=== PATIENT | female | born 2000 | race Two or more races ===

== ENCOUNTER 2024-09-01 09:37 | Observation (INO) | payer MEDICAID, SELFPAY ==
[2024-09-01] VITALS (30 sets, daily range): BP systolic 112–125; BP diastolic 59–80; PULSE 108–136; RESP 16–99; TEMP 37.1; O2SAT 96–99; BMI 35.4
--- NOTE | 2024-09-01 10:09 | XR_ITS ---
Examination: Complete OB ultrasound greater than 14 weeks Date and time of exam: September 01, 2024 1057 hours INDICATIONS: Vaginal bleeding and pelvic cramping onset today Findings: Viable intrauterine single fetus with single amniotic sac presentation cephalic spine maternal right Cardiac motion 136 BPM Placenta posterior grade 2 Umbilical cord insertion 3 vessel seen Amniotic fluid index 7.9 cm Cervix 3.4 cm Ovaries obscured by bowel gas. Composite estimated gestational age based on BPD, head circumference, abdominal circumference, femur length is 35 weeks 0 days Estimated weight 2589.5 g. Survey of intracranial anatomy, spinal anatomy, abdominal anatomy, four-chamber heart performed with no abnormalities identified. Impression: Viable intrauterine gestation cephalic presentation Placenta posterior grade 2 no abruption Estimated gestational age 35 weeks 0 days.
[2024-09-01] MEDS: SODIUM CHLORIDE 0.9% 1000 ML 1,000 ML 999 ML IV (10:40)
[2024-09-01 11:45] LABS: Collection Type, Urine Clean Catch
[2024-09-01 12:06] LABS: Bilirubin,Urine Negative (Negative); Blood,Urine Negative (Negative); Clarity,Urine Clear (Clear/Hazy); Color,Urine Yellow (Lt Yel-Yel); Glucose, Urine Negative (Negative); Ketones,Urine 4+ (Negative); Leukocyte Esterase,Urine Negative (Negative); Nitrite,Urine Negative (Negative); PH,Urine 6.5 (5.0-7.0); Protein,Urine Trace (Neg - Trace); RBC,Urine 1 /hpf (0-3); Specific Gravity,Urine 1.019 (1.001-1.035); Squamous Epithelial Cell,Urine 3 /hpf (0-5); Urobilinogen,Urine Negative mg/dL (0.0-1.0); WBC,Urine 2 /hpf (0-5)
== END 2024-09-01 12:40 | disposition home or self-care (01) ==
PROVIDERS: Admitting Provider Advanced Practice Midwife; Visit Provider Advanced Practice Midwife
DX: O46.93 Antepartum hemorrhage, unspecified, third trimester (principal); Z3A.35 35 weeks gestation of pregnancy
CPT/HCPCS: 59025; 59899; 76805; 81001; J7030

== ENCOUNTER 2024-10-09 12:49 | Inpatient (IN) | payer MEDICAID, SELFPAY ==
[2024-10-09] VITALS (142 sets, daily range): BP systolic 96–134; BP diastolic 52–80; PULSE 94–148; RESP 18–96; TEMP 36.7–37.2; O2SAT 89–100; BMI 35.6
--- NOTE | 2024-10-09 14:36 | ESHP_ITS ---
Documentation for date of: 10/09/24 OB Labor/Induct. HPI History of Present Illness Chief complaint: ctx : 1 Para: 0 History of Vaginal deliveries: 0 History of sections: No Date of last menstrual period: 01/06/24 DENITA: 10/12/24 Gestational Age (weeks): 39 Gestational Age (days): 4 Gestational age based on last menstrual period: 39 History of present illness: Patient presents with regular/painful ctx. No LOF, no vaginal bleeding. Feels normal movement. History of Present Dating criteria: LMP confirmed by 1st trimester US Adequate Care: Yes Obstetrical complications: other (elevated 1hr glucola with normal 3hr GTT, starting BMI 35 ) Labs Labs: Positive: Rubella Titre and Negative: RPR, Hepatitis B, HIV, Chlamydia and Gonorrhea Review of Systems Review of Systems Narrative Review of Systems: Review of Systems Systems Reviewed: All systems reviewed, normal except as documented Constitutional Constitutional: Denies body ache(s), Denies chills, Denies fever(s) and Denies headache(s) ENT Ears, Nose, Mouth, and Throat: Denies headache(s) and Denies vertigo Cardiovascular Cardiovascular: Denies chest pain, Denies palpitations, Denies dyspnea and Denies syncope Respiratory Respiratory: Denies cough, Denies dyspnea Gastrointestinal Gastrointestinal: Denies nausea and Denies vomiting Neurologic Neurologic: Denies convulsions, Denies headache(s), Denies other visual disturbances, Denies syncope and Denies vertigo Past Medical History Surgical History SURGICAL: Negative Section OTHER SURGICAL HX: tonsillectomy Social History SOCIAL: Denies tobacco/ETOH/illicit drug use Past Medical History Comments PMH COMMENT: Starting BMI 35 Anxiety Hx of chlamydia in remote past (negative in ) Hx of HPV positive pap Meds Home Medications and Allergies Home Medications ?Medication ?Instructions ?Recorded ?Confirmed ?Type vits no.124-ferrous fum 1 tab PO QDAY 4 10/09/24 History 27 mg iron-folic acid 800 mcg tablet ( Vitamin) Allergies Allergy/AdvReac Type Severity Reaction Status Date / Time No Known Allergies Allergy Verified 10/09/24 13:08 OB Exam Physical Exam Vital signs: Temp Pulse Resp BP Pulse Ox 98.0 F 133 H 18 123/72 98 10/09/24 12:50 10/09/24 12:58 10/09/24 12:50 10/09/24 12:58 10/09/24 14:29 Narrative: General: well developed, well nourished, no acute distress, conversant Cardiac: normal heart rate Lungs: breathing without distress Abdomen: soft, gravid, non-tender, no rebound or guarding Extremities: no pain with palpation of calves Detailed Labor and Delivery Exam Dilation (cm): 3 Effacement (%): 80 Cervix position: mid station: -2 Consistency: soft Presentation: Vertex Membranes: intact monitor accelerations: 15x15 monitor decelerations: None intermediate frame tender variability: Moderate (11-25) Contraction frequency (min): q3min OB Assessment & Plan Assessment and Plan (1) Active labor at term: Status: Acute Assessment and plan: Patient is a 24yo with SIUP at 39+4wk presenting in active labor. Regular/painful contractions, SCE: 3/80/-2, bulging bag. Vitals wnl, benign exam. Reassuring assessment. PMhx/ complicated by: Elevated 1hr glucola, normal 3hr GTT Starting BMI 35 Anxiety Hx of chlamydia in remote past (negative in ) Hx of HPV positive pap Plan: -Admit to L&D -Establish IV, routine labs -CEFM -Clear liquid diet -Application Software Developer/consent re: . She is amenable to pitocin or AROM if early labor stalls out. -GBS status: negative -Anticipate -Safe to proceed (2) Obesity affecting in third trimester: Status: Acute (2) Obesity affecting in third trimester Qualifiers: Obesity type affecting : unspecified obesity Qualified Code(s): O99.213 - Obesity complicating , third trimester
[2024-10-09 16:41] LABS: Basophils # (Auto) 0.1 Thou/mm3 (0.0-0.2); Basophils % (Auto) 0 % (0-2.5); Eosinophils # (Auto) 0.1 Thou/mm3 (0.0-0.5); Eosinophils % (Auto) 1 % (0-10); Hematocrit 38.6 % (36.0-46.0); Hemoglobin 13.3 g/dL (12.0-16.0); Immature Granulocytes % (Auto) 1 % (0-0); Immature Granulocytes Auto 0.11 Thou/mm3 (0.00-0.00); Lymphocytes # (Auto) 1.8 Thou/mm3 (1.0-4.8); Lymphocytes % (Auto) 12 % (10-50); Mean Corpuscular HGB Conc 34.5 g/dl (31.0-37.0); Mean Corpuscular Hemoglobin 29.3 pg (25.0-35.0); Mean Corpuscular Volume 85 fL (80-100); Monocytes # (Auto) 1.2 Thou/mm3 (0.0-0.8); Monocytes % (Auto) 8 % (0-12); Neutrophils # (Auto) 11.4 Thou/mm3 (1.8-7.7); Neutrophils % (Auto) 78 % (37-80); Nucleated Red Blood Cell % 0 /100 WBC (0); Platelet Count 221 Thou/mm3 (140-440); RDW Standard Deviation 46.3 fL (36.4-46.3); Red Blood Count 4.54 Miln/mm3 (4.00-5.20); White Blood Count 14.7 Thou/mm3 (3.6-11.0)
[2024-10-09 18:02] LABS: Syphilis Nonreactive (Nonreactive)
[2024-10-09] MEDS: RINGERS LACTATED 1000 ML 1,000 ML 100 ML IV ×2 (19:29→20:01)
[2024-10-09] MEDS: OXYTOCIN in NS 30 units 30 UNIT/500 ML BAG IV (21:32)
[2024-10-10] VITALS (351 sets, daily range): BP systolic 85–177; BP diastolic 48–111; PULSE 104–143; RESP 16–20; TEMP 36.7–37.3; O2SAT 87–100
[2024-10-10] MEDS: RINGERS LACTATED 1000 ML 1,000 ML 100 ML IV ×2 (09:23→13:19)
[2024-10-10] MEDS: Ampicillin Inj 2,000 MG in SODIUM CHLORIDE 0.9% (P) 100 ML 100 MG IV (13:17)
--- NOTE | 2024-10-10 13:29 | PD.LDPN ---
Documented by User: Katina Boss CNM 10/10/24 14:34 Documentation for date of: 10/10/24 OB Labor Progress Note Pain Control Pain control: epidural Pelvic Exam Dilation (cm): 7 Effacement (%): 90 station: -1 Amniotic membrane status: Ruptured Contractions Monitor mode: External Contraction frequency: 3-4 Contraction phase: Contraction Contraction intensity: Moderate Status status: Category l Assessment and Plan Assessment: active labor Plan OB labor note: continuous present management Comments: apparently pt was not 7cm this morning, RN reports she was like 5 and now she has made cervical change to 7 cm Start ampicillin for prolonged ruptured membranes Dr. Dubon updated Anticipate Documented by User: Pita Dubon MD 10/10/24 20:13 OB Labor Progress Note Pelvic Exam Dilation (cm): 6 Assessment and Plan Comments: apparently pt was not 7cm this morning, RN reports she was like 5 and now she has made cervical change to 6 cm Start ampicillin for prolonged ruptured membranes Dr. Dubon updated Anticipate
--- NOTE | 2024-10-10 16:22 | PD.LDPN ---
Documentation for date of: 10/10/24 OB Labor Progress Note Pelvic Exam Dilation (cm): 6 Effacement (%): 90 station: -1 Amniotic membrane status: Ruptured Contractions Monitor mode: External Contraction frequency: 1-2 Contraction phase: Contraction Contraction intensity: Moderate Status status: Category l Assessment and Plan Pitocin rate (mU/min): 10 Assessment: active labor Plan OB labor note: continuous present management Comments: Pt really has not made any Cervical change since 0700 Pt is very uncomfortable, called anesthesia for a bolus Placed an IUPC Discussed with pt if pt does not make cervical change in the next 2 hours, she might end up in C/S. Updated Dr. Dubon
[2024-10-10] MEDS: Ampicillin Inj 1,000 MG in SODIUM CHLORIDE 0.9% (P) 50 ML 50 MG IV (16:53)
[2024-10-10] MEDS: FAMOTIDINE INJ 10 MG/ML VIAL 2 ML 20 MG IV (19:39)
[2024-10-10] MEDS: ceFAZolin/D5W 2 GM IV 2 GM/100 ML BAG IV (19:40)
[2024-10-10] MEDS: CITRIC ACID/SODIUM CITR 15 ML UDC (BICITRA) 30 ML PO (19:40)
--- NOTE | 2024-10-10 20:12 | PD.LDPN ---
Documentation for date of: 10/10/24 OB Labor Progress Note Pain Control Comments: Patient is a 24-year-old 1 para 0 at 39 and 5 days was admitted yesterday by another provider for augmentation of labor. Patient was 3 cm when she got admitted. And SROM after admission. Patient on change of shift was reported to me as 7 cm per RN check. Given a primigravida in uncomplicated labor patient care was transferred over to tourist information officer. I received a call at 11 AM from the tourist information officer saying the patient is not 7 cm per her check however she appears to be 6 cm. Apparently the nurse who checked her in the morning who called her 7 had a recheck after her by another nurse calling her a 5 cm however it was not revealed to the patient. Patient has been on Pitocin and ruptured for 14 hours now. CNM I shall check her at 4:30 PM and her cervix still was 6 cm. I checked her myself at 6:30 PM and called her 5 to 6 cm Pelvic Exam Dilation (cm): 6 Effacement (%): 90 station: -1 Amniotic membrane status: Ruptured Contractions Monitor mode: External Contraction frequency: 1-2 Contraction phase: Contraction Contraction intensity: Moderate Status status: Category l Assessment and Plan Comments: Given the patient being in active labor for 6 hours with Pitocin and ruptured and not changing her cervical status failure to progress is diagnosed. Patient is offered a primary low-transverse and an option of expectant and continuing labor was also discussed with her Risk of including prolonged recovery was discussed Risk of expectant management and continuing labor was discussed including chorioamnionitis Patient is on antibiotics for prolonged rupture of membrane Patient decided to go for a Boarded for primary low-transverse and 1 hour
--- NOTE | 2024-10-10 21:45 | PD.LDDELS ---
Data (Rodriges) Data Hx Section: No : 1 Term: 0 : 0 : 0
--- NOTE | 2024-10-10 22:44 | OBDSUM_ITS ---
Data (Rodriges) Data Hx Section: No : 1 Para: 0 Term: 0 : 0 : 0 Delivery Data (Rodriges) Labor Data ROM Date: 10/09/24 ROM Time: 18:40 Rupture Type: AROM Amniotic Fluid: Thick Meconium Delivery Data Labor Onset Stage 1 Date: 10/09/24 Labor Onset Stage 1 Time: 20:35 Labor Onset Stage 2 Date: 10/10/24 Labor Onset Stage 2 Time: 16:30 Delivery Date: 10/10/24 Delivery Time: 20:35 Gestational age (weeks): 39 Gestational age (days): 5 Placenta Delivery Date: 10/10/24 Placenta Delivery Time: 20:37 Delivered by: Pita Dubon Delivery nurse: Kalyn Davis Other staff at delivery: Nurse Other staff at delivery: Aubree Flores Delivery Method Delivery: Delivery Type: Primary Anesthesia Type Primary Anesthesia: Epidural Secondary Anesthesia: Spinal Placenta Placenta Delivery: Manual EBL Estimated blood loss (ml): 400 Umbilical Cord Umbilical Vessels: 3 Nuchal Cord: None Body Cord: None Data (Rodriges) [place] Data Infant Gender: Female Infant Weight Grams: 3855 1 Minute Total: 6 5 Minute Total: 6
--- NOTE | 2024-10-10 22:45 | ESOP_ITS ---
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 Identity was confirmed by double identifiers and she was placed on the operating table.The abdomen and perineum were prepped in the usual sterile fashion and a Mendenhall catheter was placed to continuous drainage.? Sterile drapes were a pplied.??A Pfannenstiel skin incision was made with a scalpel and carried to the subcutaneous fat up to the rectus fascia.? The rectus fascia was incised on either side of the midline and the incisions were extended bilaterally.? The fascia was gently dissected off the ventral surface of the rectus muscle both superiorly and inferiorly. Carefully a peritioneal window craeted hysterotomy incision made and extended bluntly with finger. Rupture of membranes revealed clear fluid. The baby was found in cephalic position delivered via vertex. The umbilical cord , was doubly clamped, divided and the was handed over to the waiting team.? placenta delivered by controlled cord traction . The interior of the uterus was now thorougly cleaned of all blood and debris and membranes.? 2 cavities and the uterus verified the? hysterotomy was closed using 0 vicryl suture in double layers. Once the repair was completed the hysterotomy was inspected, was noted to be adequately hemostatic . Muscle oozing stopped by bovie. The rectus fascia was repaired using Vicry 0 in a running fashion.? The subcutaneous layer was now, approximated with 3-0 vicryl in double layers.? All bleeding points were cauterized using the Bovie.?The skin was closed using 4-0 Monocryl in a subcuticular fashion.? The skin was cleaned and a sterile dressing was applied. The patient was now undraped, the abdomen and back were thoroughly cleaned and she was now transferred to the recovery room in a stabl Estimated blood loss (ml): 400 Surgical staff Operation Date: 10/10/24 20:09 Case Staff TRAVEL ADMINISTRATOR: Jean-Paul Presley RNmanager web application: Halle Beckman Diagnosis Problem List Completed Was Problem List Reviewed/Reconciled?: Yes
[2024-10-11] MEDS: KETOROLAC INJ 30 MG/ML VIAL IVP (03:25)
[2024-10-11 03:40] VITALS: BP 117/73; PULSE 109; RESP 18; TEMP 36.8; O2SAT 98
[2024-10-11 04:08] LABS: Basophils # (Auto) 0.1 Thou/mm3 (0.0-0.2); Basophils % (Auto) 1 % (0-2.5); Eosinophils % (Auto) 0 % (0-10); Hematocrit 34.3 % (36.0-46.0); Hemoglobin 11.9 g/dL (12.0-16.0); Immature Granulocytes % (Auto) 1 % (0-0); Immature Granulocytes Auto 0.14 Thou/mm3 (0.00-0.00); Lymphocytes # (Auto) 1.9 Thou/mm3 (1.0-4.8); Lymphocytes % (Auto) 10 % (10-50); Mean Corpuscular HGB Conc 34.7 g/dl (31.0-37.0); Mean Corpuscular Hemoglobin 29.8 pg (25.0-35.0); Mean Corpuscular Volume 86 fL (80-100); Monocytes # (Auto) 1.4 Thou/mm3 (0.0-0.8); Monocytes % (Auto) 7 % (0-12); Neutrophils # (Auto) 15.3 Thou/mm3 (1.8-7.7); Neutrophils % (Auto) 81 % (37-80); Nucleated Red Blood Cell % 0 /100 WBC (0); Platelet Count 190 Thou/mm3 (140-440); RDW Standard Deviation 46.2 fL (36.4-46.3); White Blood Count 18.8 Thou/mm3 (3.6-11.0)
[2024-10-11 08:00] VITALS: BP 99/61; PULSE 100; RESP 15; TEMP 36.7; O2SAT 97
[2024-10-11] MEDS: IBUPROFEN TAB 400 MG TABLET 800 MG PO ×2 (08:08→20:43)
--- NOTE | 2024-10-11 11:10 | PD.LDPPPRG ---
Subjective Subjective Interval history: Patient seen at the bedside, doing well. Patient denies any fever, vaginal bleeding, nausea vomiting. Has been ambulating in the room denies any dizziness. Has not passed gas Exam Vital Signs Temp Pulse Resp BP Pulse Ox O2 Del Method 98.0 F 100 15 99/61 97 Room Air 10/11/24 08:00 10/11/24 08:00 10/11/24 08:00 10/11/24 08:00 10/11/24 08:00 10/11/24 08:00 Constitutional Constitutional: no acute distress Routine HEENT Exam Head: Present normocephalic and atraumatic Eye: Present EOMI and PERRL ENT: Present mucous membranes moist Routine Neck Exam Neck: Present supple and trachea midline Routine Respiratory Exam Respiratory: Present chest non-tender, lungs clear, normal breath sounds and no resp distress Routine Cardiovascular Exam Cardiovascular: Present RRR Routine Abdominal Exam Abdominal: Present soft and normoactive bowel sounds Routine Extremities Exam Extremities: Present full ROM Routine Skin Exam Skin: Present intact, dry and warm Routine Neurological Exam Neurological: Present alert, oriented X3 and CN II-XII intact Routine Psychiatric Exam Psychiatric: Present normal affect and normal thought process Objective Labs 10/11/24 03:42 Labs: Laboratory Results - last 24 hr 10/11/24 03:42 WBC 18.8 H RBC 4.00 Hgb 11.9 L Hct 34.3 L MCV 86 MCH 29.8 MCHC 34.7 RDW Std Deviation 46.2 Plt Count 190 D Neut % (Auto) 81 H Lymph % (Auto) 10 [place] % (Auto) 7 Eos % (Auto) 0 Baso % (Auto) 1 Neut # (Auto) 15.3 H Lymph # (Auto) 1.9 [place] # (Auto) 1.4 H Eos # (Auto) 0.0 Baso # (Auto) 0.1 Immature Gran # (Auto) 0.14 H Absolute Nucleated RBC 0.00 Immature Gran % 1 H Nucleated RBC % 0 Assessment & Plan Problem List (1) Active labor at term: Status: Acute (2) Obesity affecting in third trimester: Status: Acute Assessment Comment Assessment comment: 24-year-old s/p primary low-transverse for failure to progress, postop day 1 Tachycardic, hemoglobin postop 11 No vaginal bleeding Meeting postop milestones otherwise Plan Comment Plan Comment: Will repeat the hemoglobin again with lactic acid continue inpatient care Anticipate discharge tomorrow Time Spent With Patient Time: Total time spent is greater than 50% in coordination of care (as documented) at patient's floor/unit and/or counseling patient:
[2024-10-11 11:45] VITALS: BP 109/74; PULSE 104; RESP 17; TEMP 36.6; O2SAT 96
[2024-10-11 12:39] LABS: Basophils # (Auto) 0.1 Thou/mm3 (0.0-0.2); Basophils % (Auto) 0 % (0-2.5); Eosinophils # (Auto) 0.1 Thou/mm3 (0.0-0.5); Eosinophils % (Auto) 0 % (0-10); Hematocrit 37.2 % (36.0-46.0); Hemoglobin 12.6 g/dL (12.0-16.0); Immature Granulocytes % (Auto) 1 % (0-0); Immature Granulocytes Auto 0.15 Thou/mm3 (0.00-0.00); Lymphocytes # (Auto) 1.6 Thou/mm3 (1.0-4.8); Lymphocytes % (Auto) 8 % (10-50); Mean Corpuscular HGB Conc 33.9 g/dl (31.0-37.0); Mean Corpuscular Hemoglobin 29.4 pg (25.0-35.0); Mean Corpuscular Volume 87 fL (80-100); Monocytes # (Auto) 0.7 Thou/mm3 (0.0-0.8); Monocytes % (Auto) 3 % (0-12); Neutrophils # (Auto) 17.2 Thou/mm3 (1.8-7.7); Neutrophils % (Auto) 87 % (37-80); Nucleated Red Blood Cell % 0 /100 WBC (0); Platelet Count 189 Thou/mm3 (140-440); RDW Standard Deviation 47.1 fL (36.4-46.3); Red Blood Count 4.29 Miln/mm3 (4.00-5.20); White Blood Count 19.8 Thou/mm3 (3.6-11.0)
[2024-10-11] MEDS: HYDROcodone/APAP 5/325 TABLET 2 TAB PO (14:33)
--- NOTE | 2024-10-11 15:33 | PC.CC ---
Mónica Kothari is a 24-year-old female admitted for labor and delivery care. African Studies Professor made contact with Pt at bedside to complete ob assessment and discuss discharge disposition. Role and reason for the contact was explained to Pt. Demographic information was verified. Pt identified Angela Paz [phone] as surrogate decision maker. Pt is independent with all ADLs, no source of DME. PCP is JOHNNY. At time of discharge patient will return home, [facility] will provide transportation. MH was discussed with Pt and resources were discussed with Pt. Discharge Plan: Home Next of Kin: Angela Paz [phone] PCP: JOHNNY
[2024-10-11 20:10] VITALS: BP 111/74; PULSE 116; RESP 18; TEMP 36.8; O2SAT 99
[2024-10-12] MEDS: HYDROcodone/APAP 5/325 TABLET 2 TAB PO (00:38)
[2024-10-12 00:51] VITALS: BP 107/68; PULSE 112; RESP 18; TEMP 37; O2SAT 96
[2024-10-12 05:00] VITALS: BP 109/80; PULSE 89; RESP 16; TEMP 36.3; O2SAT 97
[2024-10-12 08:55] VITALS: BP 115/75; PULSE 99; RESP 18; TEMP 36.4; O2SAT 97
[2024-10-12] MEDS: IBUPROFEN TAB 400 MG TABLET 800 MG PO (09:21)
--- NOTE | 2024-10-12 10:33 | ESDS_ITS ---
DS: Providers Provider Date of admission: 10/09/24 14:19 Primary care physician: Physician No Primary/Family Admitting Provider: Lashaun Fink MD Attending Provider on Admission: Pita Dubon MD Consults: 10/10/24 21:41 Referral Routine Comment: Attending Provider on DC: Pita Dubon MD Discharging Provider: Pita Dubon MD DS: Diagnosis Problem List Completed Was Problem List Reviewed/Reconciled?: Yes Summary/Hosp Course Brief History: 24 y/o s/p PLTCS , here for 2 day . Pt has met all postop milestones including ambulation, passing gas, tolerating p.o. diet. Denies any nausea vomiting. Patient desires discharge before completion of 48 hours as her baby is in NICU at [facility] Peripartum Data Procedures: Procedures Operation Date: 10/10/24 20:09 Actual Procedure Side Surgeon p in OB Bilateral Pita Dubon MD Status at Discharge Cognitive/behavioral status at discharge: Stable Time Spent with Patient Time attestation: Total time spent providing and/or coordinating discharge services: Exam Vital Signs Temp Pulse Resp BP Pulse Ox O2 Del Method 97.6 F 99 18 115/75 97 Room Air 10/12/24 08:55 10/12/24 08:55 10/12/24 08:55 10/12/24 08:55 10/12/24 08:55 10/12/24 08:55 Constitutional Constitutional: no acute distress Routine HEENT Exam Head: Present normocephalic and atraumatic Eye: Present EOMI and PERRL ENT: Present mucous membranes moist Routine Neck Exam Neck: Present supple and trachea midline Routine Respiratory Exam Respiratory: Present chest non-tender, lungs clear, normal breath sounds and no resp distress Routine Cardiovascular Exam Cardiovascular: Present RRR Routine Abdominal Exam Abdominal: Present soft and normoactive bowel sounds Routine Extremities Exam Extremities: Present full ROM Routine Skin Exam Skin: Present intact, dry and warm Routine Neurological Exam Neurological: Present alert, oriented X3 and CN II-XII intact Routine Psychiatric Exam Psychiatric: Present normal affect and normal thought process Discharge Plan Plan Patient Disposition: HOME (Self Care) Prescriptions/Referrals Prescriptions/Med Rec: New acetaminophen-codeine 300-15 mg tablet 1 tab PO Q12H PRN (Reason: pain) Qty: 14 0RF ibuprofen 800 mg tablet 800 mg PO Q8H PRN (Reason: pain) Qty: 30 0RF No Action Vitamin 27 mg iron- 800 mcg Tablet 1 tab PO QDAY Referrals: No Primary/Family,Physician [Primary Care Provider] - Patient/Caregiver Discharge Instructions Education Materials: Storing Expressed Milk, : Caring for Yourself, C Section Dc Print Language: Kiswahili Activity Restrictions/Additional Instructions: office visit in one week Stand Alone Forms: Anayeli Award Info., Patient Portal Info Letter Vaccines Vaccines Given During Stay: Influenza Discharge Order Discharge Orders: Discharge (Routine); Ordered 10/12/24 Ordered By: Pita Dubon Planned Discharge Date 10/12/24
[2024-10-12] MEDS: DOCUSATE SOD 100 MG CAPSULE PO (10:54)
[2024-10-12] MEDS: INFLUENZA VIRUS QUADRIVALENT 0.5 ML SYRINGE IMi (11:51)
== END 2024-10-12 13:30 | disposition home or self-care (01) | DRG 540 ==
LOC: S4SX 10-10 20:06 → S4NX 10-10 21:00
PROVIDERS: Admitting Provider Obstetrics & Gynecology; Visit Provider Student in an Organized Health Care Education/Training Program
PROC: 10D00Z1 Extraction of Products of Conception, Low, Open Approach (ICD-10-PCS; CPT 59514; principal; 2024-10-10 20:00)
DX: O99.214 Obesity complicating childbirth (principal); Z37.0 Single live birth; Z3A.39 39 weeks gestation of pregnancy; O99.344 Other mental disorders complicating childbirth; F41.9 Anxiety disorder, unspecified; O77.0 Labor and delivery complicated by meconium in amniotic fluid; O62.2 Other uterine inertia; Z23 Encounter for immunization
CPT/HCPCS: 36415; 59025; 85025; 86780; 86850; 86900; 86901; 90686; J0290; J0689; J1885; J2250; J2274; J2371; J2590; J2795; J3010; J3490; J7050; J7120; A9270; J2270; J9060